=== PATIENT | female | born 1985 | race African-American/Black ===

== ENCOUNTER 2019-07-04 19:43 | Emergency (ER) | payer MEDICAID ==
[~2019-07-04] VITALS: Ht 170.2 cm; Wt 75.0 kg
[2019-07-04 20:02] VITALS: BP 109/50
--- NOTE | 2019-07-04 20:56 | PHYS DOC ---
Past Medical History Past Medical History: Depression (GEOFFREY STYLES APRN) Smoking Status: Current Every Day Smoker Alcohol Use: None (GEOFFREY STYLES APRN) Attending Signature I have participated in the care of this patient and I have reviewed and agree with all pertinent clinical information above including history, exam, and recommendations. (FOUZIA TORRES MD) Adult General Chief Complaint Chief Complaint: Congestion HPI HPI Patient is a 33 year old female with a history of depression who presents the ED today complaining of a dry cough, subjective fevers and nasal congestion for 4 days. Patient is also complaining of having no taste or smell for a week and would like to be tasted for Castle. 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 Denies being in close contact with this person. (GEOFFREY STYLES APRN) Review of Systems Review of Systems Constitutional: Reports subjective fevers Eyes: Denies change in visual acuity, redness, or eye pain [] HENT: Reports nasal congestion, lack of taste or smell sensation, denies sore throat [] Respiratory: Reports cough, denies shortness of breath [] Cardiovascular: No additional information not addressed in HPI [] GI: Denies abdominal pain, nausea, vomiting, bloody stools or diarrhea [] : Denies dysuria or hematuria [] Musculoskeletal: Denies back pain or joint pain [] Integument: Denies rash or skin lesions [] Neurologic: Denies headache, focal weakness or sensory changes [] All other systems were reviewed and found to be within normal limits, except as documented in this note. (GEOFFREY STYLES APRN) Allergies Allergies Allergies Coded Allergies Type Severity Reaction Last Updated Verified No Known Drug Allergies 07/04/19 No (FOUZIA TORRES MD) Physical Exam Physical Exam Constitutional: Well developed, well nourished, no acute distress, non-toxic appearance. [] HENT: Normocephalic, atraumatic, bilateral external ears normal, oropharynx moist, no oral exudates, nose normal. [] Eyes: PERRLA, EOMI, conjunctiva normal, no discharge. [] Neck: Normal range of motion, no tenderness, supple, no stridor. [] Cardiovascular:Heart rate regular rhythm, no murmur [] Lungs & Thorax: Bilateral breath sounds clear to auscultation [] Abdomen: Bowel sounds normal, soft, no tenderness, no masses, no pulsatile masses. [] Skin: Warm, dry, no erythema, no rash. [] Back: No tenderness, no CVA tenderness. [] Extremities: No tenderness, no cyanosis, no clubbing, ROM intact, no edema. [] Neurologic: Alert and oriented X 3, normal motor function, normal sensory function, no focal deficits noted. [] Psychologic: Affect normal, judgement normal, mood normal. [] (GEOFFREY STYLES APRN) Current Patient Data Vital Signs Vital Signs Date Time Temp Pulse Resp B/P (MAP) Pulse Ox O2 Delivery O2 Flow Rate FiO2 07/04/19 21:05 89 16 97 Room Air 07/04/19 20:02 98.5 109/50 (69) 98.5 (FOUZIA TORRES MD) Lab Values Laboratory Tests Test 07/04/19 20:19 POC Urine HCG, Qualitative Hcg negative (Negative) (FOUZIA TORRES MD) EKG EKG [] (GEOFFREY STYLES APRN) Radiology/Procedures Radiology/Procedures []PROCEDURE: CHEST PA & LATERAL Two-view chest dated 07/04/2019. No comparison available. CLINICAL INDICATION: Cough. FINDINGS: PA and lateral views obtained. Heart and mediastinal contours within normal limits. Lungs are clear. No consolidation or pleural effusion. No pneumothorax. IMPRESSION: No acute radiographic abnormality. Electronically signed by: Estevan Noonan MD (07/04/2019 8:53 PM) [id number] DICTATED and SIGNED BY: ESTEVAN NOONAN MD DATE: 07/04/192052 (GEOFFREY STYLES APRN) Course & Med Decision Making Course & Med Decision Making Pertinent Labs and Imaging studies reviewed. (See chart for details) This is a 33-year-old female patient presenting to the ED today requesting coronary testing. Patient reports having a cough, nasal congestion and subjective fevers for 4 days. Also reports having no taste or smell sensation for a week. She works in a facility that somebody tested positive for castle Virus and the facility was closed but denies being in close contact with this person. Patient is afebrile. Her oxygen saturations are 98% on room air. Heart rate in the 70s. She is in no distress. Chest x-ray is negative. Patient was discharged to home. Instructed to follow-up with her own PCP if she desires to have COVID19 testing or she can follow up with the health department. (GEOFFREY STYLES APRN) Dragon Disclaimer Dragon Disclaimer This electronic medical record was generated, in whole or in part, using a voice recognition dictation system. (GEOFFREY STYLES APRN) Departure Departure Impression: Primary Impression: Cough Additional Impression: URI (upper respiratory infection) Disposition: HOME, SELF-CARE Condition: STABLE Referrals: NO PCP (PCP) follow up with your own doctor or [facility] department Patient Instructions: Cough, Adult, [id number], Upper Respiratory Infection, Adult, [id number] Additional Instructions: You were evaluated in the emergency room, your chest x-ray is negative for any acute findings. You can follow-up with your own primary care doctor or [facility] department if you desire to have COVID 19 testing. Problem Qualifiers Additional Impression: URI (upper respiratory infection) URI type: unspecified URI Qualified Codes: J06.9 - Acute upper respiratory infection, unspecified GEOFFREY STYLES APRN Jul 04, 2019 20:56 FOUZIA TORRES MD Jul 04, 2019 23:13
== END 2019-07-04 21:05 | disposition home or self-care (01) ==
LOC: ER 19:43
DX: J06.9 Acute upper respiratory infection, unspecified (principal); F17.200 Nicotine dependence, unspecified, uncomplicated
CPT/HCPCS: 71046; 81025; 99283